=== PATIENT | male | born 1950 | race Caucasian/White ===

== ENCOUNTER 2017-07-15 17:24 | Emergency (ER) | payer OTHER ==
[2017-07-15 17:35] VITALS: BP 122/78
--- NOTE | 2017-07-15 17:57 | EDPHY ---
H & P Stated Complaint: facial lac Time Seen by Provider: 07/15/17 17:46 HPI/ROS: CHIEF COMPLAINT: Laceration left eyebrow HISTORY OF PRESENT ILLNESS: The patient is a 66-year-old man who comes to the emergency department complaining laceration above his left eyebrow. He states that he tripped and fell into a cinder block. The corner of the center blockade him in the eyebrow. It did not injure his eye. He was wearing glasses which did not break. He denies neck injury or pain. He denies headache or loss of consciousness. He is not on any blood thinners. 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 No lightheadedness or dizziness. No chest pain. No palpitations. REVIEW OF SYSTEMS: Constitutional: denies: chills, fever, recent illness, recent injury EENTM: See HPI denies: blurred vision, double vision, nose congestion Respiratory: denies: cough, shortness of breath Cardiac: denies: chest pain, irregular heart rate, lightheadedness, palpitations Gastrointestinal/Abdominal: denies: abdominal pain, diarrhea, nausea, vomiting, blood streaked stools Genitourinary: denies: dysuria, frequency, hematuria, pain Musculoskeletal: denies: joint pain, muscle pain Skin: See HPI Neurological: denies: headache, numbness, paresthesia, tingling, dizziness, weakness Hematologic/Lymphatic: denies: blood clots, easy bleeding, easy bruising Immunologic/allergic: denies: HIV/AIDS, transplant EXAM: GENERAL: Well-appearing, well-nourished and in no acute distress. HEAD: Atraumatic, normocephalic. EYES: Pupils equal round and reactive to light, extraocular movements intact, sclera anicteric, conjunctiva are normal. ENT: TMs normal, nares patent, oropharynx clear without exudates. Moist mucous membranes. NECK: Normal range of motion, supple without lymphadenopathy or JVD. LUNGS: Breath sounds clear to auscultation bilaterally and equal. No wheezes rales or rhonchi. HEART: Regular rate and rhythm without murmurs, rubs or gallops. ABDOMEN: Soft, nontender, normoactive bowel sounds. No guarding, no rebound. No masses appreciated. BACK: No CVA tenderness, no spinal tenderness, step-offs or deformities EXTREMITIES: Normal range of motion, no pitting or edema. No clubbing or cyanosis. NEUROLOGICAL: Cranial nerves II through XII grossly intact. Normal speech, normal gait. 5/5 strength, normal movement in all extremities, normal sensation PSYCH: Normal mood, normal affect. SKIN: Jagged stellate 5 cm laceration left eyebrow with several flaps. 1 cm deep. No eyelid involvement. No bony crepitus. Source: Patient Exam Limitations: No limitations - Personal History Current Tetanus/Diphtheria Vaccine: Yes Current Tetanus Diphtheria and Acellular Pertussis (TDAP): Yes - Medical/Surgical History Hx Asthma: No Hx Chronic Respiratory Disease: No Hx Diabetes: No Hx Cardiac Disease: No Hx Renal Disease: No Hx Cirrhosis: No Hx Alcoholism: No Hx HIV/AIDS: No Hx Splenectomy or Spleen Trauma: No Other PMH: CARDIAC VALVE replaced - Family History Significant Family History: No pertinent family hx - Social History Smoking Status: Never smoked Alcohol Use: Sober Drug Use: None Constitutional: Initial Vital Signs Temperature (C) 36.9 C 07/15/17 17:31 Heart Rate 89 07/15/17 17:31 Respiratory Rate 18 07/15/17 17:31 Blood Pressure 122/78 H 07/15/17 17:31 O2 Sat (%) 90 L 07/15/17 17:31 O2 Delivery Mode Room Air Allergies/Adverse Reactions: No Known Allergies Allergy (Verified 07/15/17 18:08) Home Medications: Medication Instructions Recorded Lisinopril 11/13/14 Lamictal 07/15/17 Medical Decision Making Procedures: Procedure: Laceration repair. Verbal consent was obtained from the patient. The left eyebrow laceration was anesthetized with 1% lidocaine with epi and bicarbonate locally infiltrated. The wound was irrigated copiously according to protocol, draped and explored to its base. It was approximately 1 cm deep. There were no deep structures involved. No tendon, nerve, or vascular injury was identified when explored with flap elevation. No foreign body was identified. The wound was repaired with 5.0 Prolene, 24 sutures, interrupted. The wound repair was complex without wound margin revisement or multiple flap alignment. The procedure was performed by myself. A dressing was then placed with sterile gauze and bacitracin. ED Course/Re-evaluation: 650 p.m. the patient tolerated laceration repair well. We discussed suture care and removal. He declines imaging or further testing. He is eager to go home. We discussed indications for returning. Differential Diagnosis: Partial list of the Differential diagnosis considered include but were not limited to; laceration, contusion, and although unlikely based on the history and physical exam, I also considered eye injury, intracranial injury, neck injury. I discussed these differential diagnoses and the plan with the patient as well as the usual and expected course. The patient understands that the diagnosis is provisional and that in medicine we are not always correct and that further workup is often warranted. Usual and customary warnings were given. All of the patient's questions were answered. The patient was instructed to return to the emergency department should the symptoms at all worsen or return, otherwise to followup with the physician as we discussed. Departure - Departure Disposition: Home, Routine, Self-Care Clinical Impression: Laceration of left eyebrow Qualifiers: Encounter type: initial encounter Qualified Code(s): S01.112A - Laceration without foreign body of left eyelid and periocular area, initial encounter Condition: Fair Instructions: Care For Your Stitches (ED), Laceration (ED) Additional Instructions: Have your sutures removed in 10 days Referrals: Santiago Duncan MD [Primary Care Provider] - As per Instructions
== END 2017-07-15 19:17 | disposition home or self-care (01) ==
LOC: CED 17:24
PROC: 0HQ1XZZ Repair Face Skin, External Approach (ICD-10-PCS; principal; 2017-07-15)
DX: S01.112A Laceration without foreign body of left eyelid and periocular area, initial encounter (principal); W01.0XXA Fall on same level from slipping, tripping and stumbling without subsequent striking against object, initial encounter

== ENCOUNTER 2017-09-11 13:50 | Emergency (ER) | payer OTHER ==
[2017-09-11 14:02] VITALS: BP 132/93
--- NOTE | 2017-09-11 14:11 | EDPHY ---
H & P Stated Complaint: sinus pressure x 1 week Time Seen by Provider: 09/11/17 14:01 HPI/ROS: Chief Complaint: Sinus congestion and pain HPI: 58-year-old male presenting with 1 week of worsening left-sided facial pain sinus congestion and greenish discharge. Patient noticed some pain I in his left upper base of his tooth this morning which has him concerned. No fevers or chills. Patient states symptoms started about a week ago when his occur up camping exposed to smoke while camping. No cough. No shortness of breath. No neck pain. Mild left-sided headache. No vision or hearing changes. ROS: 10 point Review of Systems is negative except as noted in the HPI. Social History: No smoking, no alcohol, no recreational drug use Family History: non-contributory Physical Exam: Gen: Awake, Alert, No Distress HEENT: Moderate left frontal and left maxillary sinus tenderness to percussion Nose: no rhinorrhea Eyes: PERRLA, EOMI Mouth: Moist mucosa no dental tenderness to percussion, no fluctuance or pointing Neck: Supple, no JVD Ext: no edema, non-tender Skin: no rash Neuro: CN II-XII intact, Sensation grossly intact, Strength 5/5 in bilateral upper and lower extremities - Personal History Current Tetanus Diphtheria and Acellular Pertussis (TDAP): Yes - Medical/Surgical History Hx Asthma: No Hx Chronic Respiratory Disease: No Hx Diabetes: No Hx Cardiac Disease: No Hx Renal Disease: No Hx Cirrhosis: No Hx Alcoholism: No Hx HIV/AIDS: No Hx Splenectomy or Spleen Trauma: No Other PMH: Aortic valve replaced. seizure - Social History Smoking Status: Former smoker Constitutional: Initial Vital Signs Temperature (C) 36.4 C 09/11/17 13:55 Heart Rate 73 09/11/17 13:55 Respiratory Rate 16 09/11/17 13:55 Blood Pressure 132/93 H 09/11/17 13:55 O2 Sat (%) 95 09/11/17 13:55 O2 Delivery Mode Room Air Allergies/Adverse Reactions: No Known Allergies Allergy (Verified 09/11/17 14:02) Home Medications: Medication Instructions Recorded Lisinopril 11/13/14 Lamictal 07/15/17 Amoxicillin Trihydrate [Amoxil] 500 mg PO Q8H #30 cap 09/11/17 Aspirin 325 mg (*) 09/11/17 Departure - Departure Disposition: Home, Routine, Self-Care Clinical Impression: Acute sinusitis Condition: Good Instructions: Sinusitis (ED) Additional Instructions: You may take [id number] cough and cold medicines per package instructions. Please take your full course of antibiotics. Follow up with primary care physician about 5 days if symptoms are not improving. Referrals: Santiago Duncan MD [Primary Care Provider] - As per Instructions Prescriptions: Amoxicillin Trihydrate [Amoxil] 500 mg PO Q8H #30 cap
== END 2017-09-11 14:20 | disposition home or self-care (01) ==
LOC: CED 13:50
DX: J01.90 Acute sinusitis, unspecified (principal); Z79.82 Long term (current) use of aspirin; Z87.891 Personal history of nicotine dependence